=== PATIENT | female | born 1960 | race Caucasian/White ===

== ENCOUNTER 2022-01-05 12:42 | Emergency (ER) | payer BC ==
[~2022-01-05] VITALS: Ht 157.5 cm; Wt 91.2 kg
[2022-01-05 13:18] LABS: BASOPHILS ABSOLUTE AUTO 0.06 K/mm3 (0.00-0.23); BASOPHILS PERCENT AUTO 1 % (0-2); EOSINOPHILS ABSOLUTE AUTO 0.16 K/mm3 (0.00-0.68); EOSINOPHILS PERCENT AUTO 2 % (0-6); Hematocrit 45.4 % (33.0-51.0); Hemoglobin 15.2 g/dL (11.5-16.0); IMMATURE GRAN ABSOLUTE AUTO 0.04 K/mm3 (0.00-0.10); IMMATURE GRAN PERCENT AUTO 0 % (0-1); LYMPHOCYTES ABSOLUTE AUTO 3.65 K/mm3 (0.84-5.20); LYMPHOCYTES PERCENT AUTO 39 % (21-46); MONOCYTES ABSOLUTE AUTO 0.67 K/mm3 (0.16-1.47); MONOCYTES PERCENT AUTO 7 % (4-13); Mean Corpuscular HGB 32.8 pg (26.0-34.0); Mean Corpuscular HGB Conc 33.5 g/dL (31.5-36.5); Mean Corpuscular Volume 98 fL (80-100); Mean Platelet Volume 8.8 fL (9.1-12.4); NEUTROPHILS ABSOLUTE AUTO 4.88 K/mm3 (1.96-9.15); NEUTROPHILS PERCENT AUTO 52 % (41-73); Platelet Count 419 K/mm3 (150-400); RDW Coefficient Variation 11.5 % (11.7-14.2); RDW Standard Deviation 41.5 fL (35.1-46.3); Red Blood Cell Count 4.63 M/mm3 (3.80-5.20); White Blood Cell Count 9.46 K/mm3 (4.00-11.30)
[2022-01-05 14:12] LABS: Alanine Aminotransfer (ALT/SGP 25 U/L (12-78); Albumin, Blood 3.7 g/dL (3.4-5.0); Albumin/Globulin Ratio 1.1 (0.8-1.8); Alk Phos 49 U/L (50-136); Anion Gap 6 mmol/L (6-16); Aspartate Aminotrans (AST/SGOT 16 U/L (12-37); Bilirubin, Total 0.3 mg/dL (0.1-1.0); Blood Urea Nitrogen 7 mg/dL (8-24); Bun/Creatinine Ratio 12.3 (12.0-20.0); CO2, Blood 27 mmol/L (21-32); Chloride, Blood 104 mmol/L (98-108); Creatinine, Blood 0.57 mg/dL (0.40-1.00); Globulin, Blood 3.3 g/dL (2.2-4.0); Glomerular Filtration Rate >60 (60-); Glucose, Blood 102 mg/dL (70-99); Potassium, Blood 4.3 mmol/L (3.5-5.5); Sodium, Blood 137 mmol/L (136-145)
== END 2022-01-05 16:45 | disposition home or self-care (01) ==
LOC: ER 12:42
PROVIDERS: Student in an Organized Health Care Education/Training Program
DX: K59.00 Constipation, unspecified (principal); Z88.5 Allergy status to narcotic agent; Z88.8 Allergy status to other drugs, medicaments and biological substances
CPT/HCPCS: 36415; 74177; 80053; 83690; 85025; 99284-25; Q9967

== ENCOUNTER 2023-02-14 06:49 | Day surgery (SDC) | payer MEDICARE ==
[~2023-02-14] VITALS: Ht 157.5 cm; Wt 91.9 kg
[2023-02-14] MEDS ORDERED: Acetaminophen325 M1 (07:08)
[2023-02-14] MEDS ORDERED: DULO60 (07:09)
[2023-02-14] MEDS ORDERED: ASCORBIC ACID500 MG (07:09)
[2023-02-14] MEDS ORDERED: VITAMIN D32000 UNIT (07:09)
[2023-02-14] MEDS ORDERED: ATOR20 (07:09)
[2023-02-14] MEDS ORDERED: MECL12.5 (07:10)
[2023-02-14] MEDS ORDERED: CLIMARA1 EACH (07:10)
[2023-02-14] MEDS ORDERED: MELA3 (07:10)
[2023-02-14] MEDS ORDERED: LISI20 (07:10)
[2023-02-14] MEDS ORDERED: FERSU300 (07:10)
[2023-02-14] MEDS ORDERED: FENO48 (07:10)
[2023-02-14] MEDS ORDERED: OMEP20ER (07:11)
[2023-02-14] MEDS ORDERED: PROP80ER (07:11)
[2023-02-14] MEDS ORDERED: VALTREX (07:11)
[2023-02-14] MEDS ORDERED: MULTIPLE VITAM1 EACH (07:11)
[2023-02-14] MEDS ORDERED: NORTRIPTYLINE H5012 (07:11)
[2023-02-14 08:43] VITALS: BP 103/68
--- NOTE | 2023-02-14 08:45 | NUR ---
02/14/23 0845 Sun Mayes IV DC'D, CATH INTACT. PRESSURE DRESSING APPLIED. PT TOLERATED WELL
== END 2023-02-14 08:45 | disposition home or self-care (01) ==
LOC: ORSCSDS 06:49
PROVIDERS: Student in an Organized Health Care Education/Training Program
PROC: 0DB58ZX Excision of Esophagus, Via Natural or Artificial Opening Endoscopic, Diagnostic (ICD-10-PCS; principal; 2023-02-14 08:00)
PROC: 0DB78ZX Excision of Stomach, Pylorus, Via Natural or Artificial Opening Endoscopic, Diagnostic (ICD-10-PCS; principal; 2023-02-14 08:00)
PROC: 0DB98ZX Excision of Duodenum, Via Natural or Artificial Opening Endoscopic, Diagnostic (ICD-10-PCS; principal; 2023-02-14 08:00)
DX: R10.12 Left upper quadrant pain (principal); K29.80 Duodenitis without bleeding; K29.70 Gastritis, unspecified, without bleeding; R23.4 Changes in skin texture; Z87.891 Personal history of nicotine dependence; I10 Essential (primary) hypertension; Z86.718 Personal history of other venous thrombosis and embolism; Z79.899 Other long term (current) drug therapy
CPT/HCPCS: J2001; J2704; J7120; Q9968

== ENCOUNTER → 2025-03-05 | Outpatient (CLI) | payer OTHER ==
[~2025-03-05] MED LIST: ASCORBIC ACID500 MG; ATOR20; Acetaminophen325 M1; CLIMARA1 EACH; DULO60; FENO48; FERSU300; LISI20; MECL12.5; MELA3; MULTIPLE VITAM1 EACH; NORTRIPTYLINE H5012; OMEP20ER; PROP80ER; VALTREX; VITAMIN D32000 UNIT
== END | disposition home or self-care (01) ==
LOC: LAB 10:40 → LAB SHORT 10:40
DX: N39.0 Urinary tract infection, site not specified (principal); R30.0 Dysuria; R35.0 Frequency of micturition
CPT/HCPCS: 87077; 87086; 87186